=== PATIENT | female | born 1995 | race Caucasian/White ===

== ENCOUNTER 2023-01-25 07:00 | Inpatient (IN) | payer BC, SELFPAY ==
[2023-01-25] VITALS (41 sets, daily range): BP systolic 94–140; BP diastolic 53–73; PULSE 68–112; RESP 16; TEMP 35.7–37.6; O2SAT 93–100; BMI 28.8
[2023-01-25] MEDS: Lactated Ringers 1,000 ML 50 ML IV (07:50)
[2023-01-25 08:11] LABS: Absolute Lymphocyte Count 1.79 X10^3/uL (0.83-4.51); Absolute Neutrophil Count 8.4 X10^3/uL (2.0-7.7); Basophil# 0.02 X10^3/uL; Basophil% 0.2 % (0-1); Eosinophil# 0.02 X10^3/uL; Eosinophils% 0.2 % (0-5); Hematocrit 36.2 % (37-47); Hemoglobin 12.2 g/dL (12.0-15.0); Lymphocyte # 1.79 X10^3/ul (0.83-4.51); Lymphocyte % 16.3 % (19-41); Mean Corp Hgb Conc 33.7 g/dL (32-36); Mean Corpuscular Hgb 30.5 pg (27.0-32.0); Mean Corpuscular Volume 90.5 fL (81-99); Mean Platelet Vol. 10.1 fl (6.2-12.0); Monocyte# 0.71 X10^3/uL; Monocyte% 6.4 % (0-10); NRBC Flagged by Analyzer 0 % (0-5); Neutrophil # 8.44 X10^3/uL (2.7-7.7); Neutrophil % 76.6 % (47-70); Platelet Count 302 K/mm3 (150-450); RBC Distribution Width CV 13.8 % (11.6-14.6); RBC Distribution Width SD 45.5 fl (35.1-43.9)
--- NOTE | 2023-01-25 08:49 | PCM.HP.OB ---
HPI - General General Date of Admission: 01/25/23 Date of Service: 01/25/23 HPI Narrative CAROL GASCA, is a 27 F who presents for induction. Maternal Data Information Final SIENA: 01/17/23 Gestational age: 41&1 PFSH PFS Medical History no medical history Home Medications aspirin 81 mg chewable tablet 1 tab PO DAILY 01/25/23 [History Last Taken 01/25/23 06:00] famotidine 20 mg tablet 20 mg PO DAILY indigestion 01/25/23 [History Last Taken 01/25/23 06:30] vit no.95-ferrous fumarate 28 mg-folic acid 800 mcg tablet () 1 tab PO DAILY 01/25/23 [History Last Taken 01/25/23 06:00] Allergy/AdvReac Type Severity Reaction Status Date / Time No Known Allergies Allergy Verified 01/25/23 07:37 Surgical History (Updated 01/25/23 @ 07:49 by Kellen Monae) Hollis teeth removed Social History Smoking Status: Former smoker History Elective abortions Hx Para 0 Spontaneous abortions Hx # Term Pregnancies Ectopic pregnancies Hx # Pregnancies Multiple births # of living children Vital Signs Vital Signs Vital Signs: 01/25/23 07:45 01/25/23 07:45 01/25/23 08:11 Temperature Temperature Source Pulse Rate 99 Blood Pressure 111/65 BP Systolic 111 BP Diastolic 65 Pulse Ox 98 01/25/23 08:11 01/25/23 08:12 01/25/23 08:12 Temperature Temperature Source Pulse Rate 91 94 Blood Pressure BP Systolic BP Diastolic Pulse Ox 99 01/25/23 08:13 01/25/23 08:11 01/25/23 08:11 Temperature 96.3 F L Temperature Source Temporal Pulse Rate Blood Pressure BP Systolic BP Diastolic Pulse Ox 98 01/25/23 08:11 Temperature 96.2 F L Temperature Source Pulse Rate Blood Pressure BP Systolic BP Diastolic Pulse Ox Weight Weight: 157 lb 10.088 oz Body Mass Index (BMI) 28.8 Labs Labs Labs: Blood Type Pending Antibody Screen Pending Hct 36.2 % (37-47) L Hgb 12.2 g/dL (12.0-15.0) Syphilis Total Ab Pending Assessment & Plan (1) 41 weeks gestation of : COMMENT: @ 41&1 PLAN: Plan Admit to &D Induction - dilapan (x4) removed, will start pitocin GBS negative Pain - plan for epidural EFW - less than 4500g, patient with adequate pelvis
[2023-01-25] MEDS: Oxytocin 15 Units/NS 250ml 15 UNITS/250 ML IV.SOLN 2 UNITS IV (09:01)
[2023-01-25 09:52] LABS: Syphilis Antibodies Non-reactive
--- NOTE | 2023-01-25 13:09 | PN.OBGYN_ITS ---
Subjective Subjective Patient feeling some ctxs Objective Data Objective Data Vital Signs: Vital Signs Temp Pulse BP Pulse Ox 96.3 F L 83 110/70 98 01/25/23 10:55 01/25/23 11:38 01/25/23 11:38 01/25/23 10:55 Weight: 157 lb 10.088 oz Body Mass Index (BMI) 28.8 Intake & Output: Intake and Output for Last 24 Hours 01/23/23 01/24/23 01/25/23 23:59 23:59 23:59 Intake Total 14.00 / 14.00 Balance 14.00 / 14.00 Lab / Micro Data 01/25/23 07:50 Labs: Laboratory Results - last 24 hr 01/25/23 07:50: WBC 11.0, RBC 4.00 L, Hgb 12.2, Hct 36.2 L, MCV 90.5, MCH 30.5, MCHC 33.7, RDW Std Deviation 45.5 H, RDW Coeff of Sydnee 13.8, Plt Count 302, MPV 10.1, Immature Gran % (Auto) 0.300, Neut % (Auto) 76.6 H, Lymph % (Auto) 16.3 L, [place] % (Auto) 6.4, Eos % (Auto) 0.2, Baso % (Auto) 0.2, Absolute Neuts (auto) 8.4 H, Absolute Lymphs (auto) 1.79, Nucleated RBC % 0, Syphilis Total Ab Non- reactive, Blood Type O NEGATIVE, Antibody Screen POSITIVE, Antibody Identification ANTI-D Physical Exam Narrative: cvx - 5/80/-2, AROM clear fluid NST FHR Rate Baby A Baseline: 130 Variability:: Moderate Accelerations:: 15 x 15 Decelerations:: None Uterine Activity:: Irregular Assessment & Plan (1) 41 weeks gestation of : COMMENT: @ 41&1 PLAN: Plan Continue pitocin induction
[2023-01-25] MEDS: LACTATED RINGERS 500 ML 999 ML IV (16:30)
[2023-01-25] MEDS: fentaNYL-bupivacaine (epidural) 100 ML BAG EPIDURAL ×2 (17:22→21:37)
[2023-01-25] MEDS: Lactated Ringers 1,000 ML 200 ML IV ×2 (17:51→23:36)
[2023-01-26] VITALS (29 sets, daily range): BP systolic 73–134; BP diastolic 46–81; PULSE 66–162; RESP 15–165; TEMP 36.1–37.8; O2SAT 95–100
[2023-01-26] MEDS: LACTATED RINGERS 500 ML 999 ML IV ×2 (01:42→08:38)
[2023-01-26] MEDS: fentaNYL-bupivacaine (epidural) 100 ML BAG EPIDURAL ×2 (02:22→07:19)
[2023-01-26] MEDS: Lactated Ringers 1,000 ML 200 ML IV ×2 (05:12→11:46)
--- NOTE | 2023-01-26 08:15 | PCM.PN.OB ---
Subjective Subjective Patient seen at bedside. Comfortable with epidural. Objective Data Objective Data Vital Signs: Vital Signs Temp Pulse Resp BP Pulse Ox 99.0 F 81 16 114/77 100 01/26/23 07:31 01/26/23 07:31 01/25/23 13:47 01/26/23 07:31 01/26/23 07:29 Weight: 157 lb 10.088 oz Body Mass Index (BMI) 28.8 Intake & Output: Intake and Output for Last 24 Hours 01/24/23 01/25/23 01/26/23 23:59 23:59 23:59 Intake Total 2353.41 / 2353.41 1652.0 / 1652.0 Output Total 600 / 600 1150 / 1150 Balance 1753.41 / 1753.41 502.0 / 502.0 Lab / Micro Data 01/25/23 07:50 Labs: Laboratory Results - last 24 hr 01/25/23 07:50: Syphilis Total Ab Non-reactive, Blood Type O NEGATIVE, Antibody Screen POSITIVE, Antibody Identification ANTI-D ROS Eyes Eyes: Denies blurry vision, change in vision or spots in vision ENT HEENT: Denies dizziness or headache(s) Cardiovascular Cardiovascular: Denies abdominal pain, chest pain or dyspnea Respiratory/Chest Respiratory/Chest: Denies cough, dyspnea, shortness of breath at rest or shortness of breath with exertion Gastrointestinal Gastrointestinal: Denies abdominal pain, diarrhea or vomiting Genitourinary Genitourinary: Denies change in urinary stream, difficulty urinating or dysuria Musculoskeletal Musculoskeletal: Reports none Integumentary Integumentary: Denies rash Neurologic Neurologic: Denies dizziness, headache(s), memory loss or weakness Psychiatric Psychiatric: Reports none Physical Exam Const alert and no apparent distress General Appearance: cooperative Orientation / Consciousness: awake Exam Limitations: no limitations HEENT normocephalic Eyes General Eye: normal appearance of both eyes Neck full ROM Chest inspection of chest normal Resp normal respiratory effort and normal air movement Effort and Inspection: symmetric chest movement Auscultation: clear to auscultation bilaterally Cardio regular rate GI soft to palpation, non-tender and non-distended Inspection: and other Back/Spine normal ROM Extremity full ROM, normal capillary refill and no calf tenderness Skin no rashes or lesions noted Neuro oriented x3 and CN's II-XII intact bilaterally Psych mental status grossly normal Assessment & Plan (1) 41 weeks gestation of : COMMENT: @ 41&1 (2) Encounter for induction of labor: PLAN: Plan CE- 9cm/0 IUPC replaced Pitocin IV at 20 mu/min Epidural rate to be decreased in order for patient to feel during pushing Anticipate Dr. Mercado updated and is collaborating physician
[2023-01-26] MEDS: 0.9% Saline Lock 10 ML Syringe IV ×2 (08:45→20:05)
--- NOTE | 2023-01-26 12:27 | PCM.PN.BLA ---
Progress Note I was called to evaluate patient for possible vacuum extraction due to maternal exhaustion. Upon my arrival tachycardia appreciated with variable and late decelerations. head with pushing at +[address] Cisneros catheter draining. Patient was counseled on Kiwi vacuum application risks benefits and alternatives. Patient agreeable to attempt. Vacuum was placed on the flexion point and attempt with 2 contractions without movement of the head. Vacuum was then removed and maternal pushing efforts again no movement of the head. At this time patient was counseled with 1 more attempt of the vacuum and if no further movement my recommendation would be for a primary section. At this time patient opted for no further trial of the vacuum and wants to proceed with a primary section. Patient was counseled on the risks of a primary section including but not limited to injury to fetus if a push up from below was indicated, infection, bleeding, uterine and cervical lacerations. All questions were answered. TXA and preoperative antibiotics including azithromycin and Ancef were ordered. Or team notified. We will proceed as an BAUDILIO .
[2023-01-26] MEDS: Cefazolin 2 GM in 0.9% Normal Saline 100 ML IV (12:30)
[2023-01-26] MEDS: Methylergonovine 0.2 MG/ML Ampul IM (13:13)
[2023-01-26] MEDS: Oxytocin 15 Units/NS 250ml 15 UNITS/250 ML IV.SOLN 83 UNITS IV (13:13)
--- NOTE | 2023-01-26 13:40 | EX.PCM.OBRPT ---
Details Operative Information Date of Procedure: 01/26/23 Pre-Operative Diagnosis: 41 weeks, prolonged labor, Arrest of descent, failed operative delivery, maternal exhaustion, tachycardia, Meconium stained amniotic fluid Post-Operative Diagnosis: same, live female Indications Narrative: Patient was pushing for 3+ hours without descent of the head. I was called by nurse umbrella supervisor Ying veliz for attempted vacuum extraction. With pushing the head was at +2 station Kiwi vacuum was attempted without movement of the head. Patient was counseled on a primary section at that time. I discussed with the patient after the section that I do not recommend a trial of labor after section. Any future pregnancies I would recommend planned repeat section at 39 weeks. Classification: BAUDILIO Procedure Type: low transverse manager assessment #1: Perico Guerra Type of Anesthesia: Epidural Antibiotic Given: Ancef 2 grams IV x1 and Zithromax 500 mg/5 mL X1 Drain: Cisneros to straight drain Estimated Blood Loss: 600 Fluids Replaced: 1200 Procedure Start Time: 12:48 Procedure Stop Time: 13:41 Time of Delivery: 12:52 Findings Description of Procedure: After informed consent was obtained the patient was taken the operating room. She was then placed in the supine position. She was prepped and draped in the normal sterile fashion. epdiural Anesthesia was found to be adequate. head was disengaged and pillow was placed after vaginal vault prep performed. At this time a Pfannenstiel skin incision was made with a knife was carried down to the underlying layer of the fascia. The fascial incision was then extended laterally using gentle opposing traction. attention was then turned to the superior aspect of the fascial edge was grasped with 2 straight [place] clamps tented up and the rectus muscle dissected off sharply using curved Gonzalez scissor. Rectus muscles were then in the midline bluntly and peritoneum was entered bluntly. Gentle opposing traction was placed. At this time the vesicouterine peritoneum was identified. Scalpel was used to make a uterine incision in a low transverse fashion. The uterus was then entered bluntly gentle opposing traction was placed to extend this incision. thick meconium fluid. 's head was brought to the uterine incision was delivered atraumatically. Cord was clamped and cut was handed to the waiting nursery team. The Placenta was removed from the uterus. The uterus was then removed from the abdominal cavity. Small extension down both sides were noted- repairs were incorporated into the closure of uterus. The uterus was cleared of all clots and debris using a lap. At this time the uterine incision was reapproximated using #1 Vicryl in a running locked fashion. Multiple sinuses bleeding in lower uterine segement- required sutures in figure of eight fashion for hemostasis. Hemostasis was appreciated. Posterior cul-de-sac was then cleared of all clots and debris. Uterus was placed back in the abdominal cavity. Gutters were cleared of all clots and debris. Uterine incision was reevaluated and noted to be of good hemostasis. Reynold placed. At this time the peritoneum and muscle were grasped with Kellys reapproximated using #2 Vicryl suture in a running fashion. Reynold placed over rectus. Fascia was then reapproximated using #1 Vicryl in a running fashion. Subcu layer was irrigated and then reapproximated with #2 0 plain gut suture in an interrupted fashion. Subcu layer was closed using 4-0 Monocryl in a Chris needle in a subcu fashion. Dry sterile dressing was applied. Instrument lap needle count correct ?2. Anticipated normal postoperative course. Presentation: Positive for Vertex Amniotic Membrane Rupture Type: Artificial Amniotic Fluid Description: Thick meconium Placental Delivery Description: Expressed Placenta Disposition: [facility] Cord Vessel Description: 3 Vessels Cord Entanglement: None A Gender: Female (1 minute): 8 (5 minute): 9 Delayed Cord Clamping: No Complications Risks of Surgery Discussed w/Patient: Bleeding, Anesthesia Risks, Infection, Need for Future C-Sections and Injury to surrounding structure(s) including bowel and bladder Complications: 2 bottle of reynold used for hemostasis. pillow used
[2023-01-26] MEDS: Ketorolac 30 MG/ML Syringe IV ×2 (14:15→20:04)
[2023-01-26] MEDS: Acetaminophen 500 MG Tablet 1000 MG PO ×2 (18:29→23:21)
[2023-01-27] VITALS: PULSE 68; RESP 14; O2SAT 97
[2023-01-27 01:13] VITALS: PULSE 72; RESP 15; O2SAT 97
[2023-01-27] MEDS: Ketorolac 30 MG/ML Syringe IV ×2 (02:28→09:11)
[2023-01-27] MEDS: 0.9% Saline Lock 10 ML Syringe IV ×2 (02:28→09:11)
[2023-01-27 03:30] VITALS: BP 103/67; PULSE 80; RESP 15; TEMP 36.4; O2SAT 97
[2023-01-27 05:20] LABS: Hematocrit 31.9 % (37-47); Hemoglobin 10.5 g/dL (12.0-15.0); Mean Corp Hgb Conc 32.9 g/dL (32-36); Mean Corpuscular Hgb 30.6 pg (27.0-32.0); Mean Platelet Vol. 9.7 fl (6.2-12.0); Platelet Count 226 K/mm3 (150-450); RBC Distribution Width CV 14.3 % (11.6-14.6); RBC Distribution Width SD 47.6 fl (35.1-43.9); Red Blood Count 3.43 M/mm3 (4.2-5.4); White Blood Count 14.1 K/mm3 (4.4-11.0)
[2023-01-27] MEDS: Acetaminophen 500 MG Tablet 1000 MG PO ×3 (06:37→18:15)
--- NOTE | 2023-01-27 07:34 | PCM.PN.OB ---
Subjective Subjective Patient seen at bedside. Feeling good. Pain is controlled. Ambulating to bathroom and voiding without difficulty. Objective Data Objective Data Vital Signs: Vital Signs Temp Pulse Resp BP Pulse Ox O2 Del Method 97.5 F L 80 15 103/67 97 Room Air 01/27/23 03:30 01/27/23 03:30 01/27/23 03:30 01/27/23 03:30 01/27/23 03:30 01/27/23 03:30 Oxygen Delivery Method Room Air Weight: 157 lb 10.088 oz Body Mass Index (BMI) 28.8 Intake & Output: Intake and Output for Last 24 Hours 01/25/23 01/26/23 01/27/23 23:59 23:59 23:59 Intake Total 2353.41 / 2353.41 6061.34 / 6061.34 Output Total 600 / 600 2950 / 2950 400 / 400 Balance 1753.41 / 1753.41 3111.34 / 3111.34 -400 / -400 Lab / Micro Data 01/27/23 05:11 Labs: Laboratory Results - last 24 hr 01/26/23 17:50: Screen NEGATIVE, Baby's Blood Type O POSITIVE, Baby's DANIEL NEGATIVE 01/27/23 05:11: WBC 14.1 H, RBC 3.43 L, Hgb 10.5 L, Hct 31.9 L, MCV 93.0, MCH 30.6, MCHC 32.9, RDW Std Deviation 47.6 H, RDW Coeff of Sydnee 14.3, Plt Count 226, MPV 9.7 ROS Eyes Eyes: Denies blurry vision, change in vision or spots in vision ENT HEENT: Denies dizziness or headache(s) Cardiovascular Cardiovascular: Denies abdominal pain, chest pain or dyspnea Respiratory/Chest Respiratory/Chest: Denies cough, dyspnea, shortness of breath at rest or shortness of breath with exertion Gastrointestinal Gastrointestinal: Denies abdominal pain, diarrhea or vomiting Genitourinary Genitourinary: Denies change in urinary stream, difficulty urinating or dysuria Musculoskeletal Musculoskeletal: Reports none Integumentary Integumentary: Denies rash Neurologic Neurologic: Denies dizziness, headache(s), memory loss or weakness Physical Exam Narrative Dressing is dry and intact Const alert and no apparent distress General Appearance: cooperative and comfortable Exam Limitations: no limitations HEENT normocephalic Eyes General Eye: normal appearance of both eyes Neck full ROM General: normal visual inspection Chest Chest: symmetrical chest wall rise Resp normal respiratory effort and normal air movement Effort and Inspection: symmetric chest movement Auscultation: clear to auscultation bilaterally Cardio regular rate and regular rhythm GI normal to inspection, nondistended, normoactive bowel sounds Back/Spine normal ROM Extremity full ROM and no calf tenderness General Extremity: normal exam except as noted Skin no rashes or lesions noted Neuro CN's II-XII intact bilaterally Psych mental status grossly normal Assessment & Plan (1) Status post primary low transverse section: (2) Care and examination of lactating mother: PLAN: Plan POD 1 Primary C/S Routine care Pain control support Anticipate discharge home tomorrow
[2023-01-27 09:04] VITALS: BP 98/59; PULSE 84; RESP 16; TEMP 36.7; O2SAT 98
--- NOTE | 2023-01-27 10:13 | CASEMGMT ---
Social Work Assessment Labor and Delivery Unit Patient Address:[address] [place] [address] [place] [address] Phone number: [phone] Date of Referral: 01/26/23 Time of Referral:? 1800 Referred By: Dr. Marisela Mercado Date of Intervention: ??01/27/23 Time of Intervention:? 929 Reason for Referral:? anxiety Sw completed chart review and acknowledges social work consult received due to MOB with anxiety. Sw presented to bedside, introduced self to parents and explained sw role during hospitalization. History obtained from: medical records and mother of baby (MIRANDA- Tamiko) and father of baby (FOB- Javad Wright)??? Household composition: Currently residing in the home are parents and baby, Cy (no one else lives with family at this time) Patient's parent/guardian status:?MOB is a 27- year- old single female who has been involved with FOB for the past2.5/3 years. FOB is 27-year-old single male. During private conversation with MOB, MOB denies any form of domestic violence or intimate partner violence. is the first child to both parents. [place] baby girl is to be named Cy Ny, born 01/26/[birth year]. Medical History: MIRANDA is 1, para 0, now 1 after delivering baby girl via . MIRANDA received routine care with [facility]. Cy weighed 7lb 8oz at , and her apgars were 9 and 9. No medical issues or concerns reported at this time. MOB states that she is and it is going well. Educational Status:?BOth parents graduated from high school. Parents deny any concerns learning, reading or writing, no need for IEP. Financial Status: Both parents are gainfully employed outside of the home. Both parents work at [employer]. FOB states that he is able to take off 2 weeks now that baby has been born. MOB states that she will be off of work for four months. Supplies:?Parents state that they have obtained all necessary baby items for baby including safe sleep space, car seat, clothes, diapers and wipes. Childcare/Caregiver(s):?MOB states that she and FOB will be the primary caregivers to patient. Parents report they will be working different shifts at work to help accommodate child care coordinator needs. Transportation:?? Parents deny transportation issues, both have reliable vehicles. No transportation barriers at this time. Programs/Agencies Involved: ???No agency/ program involvement at this time. Sw provided parents with brochure on Help Me Grow and explained benefits of getting connected. Parents appreciative of information received. Children Services/Legal Issues:??? No prior involvement, no issues or concerns warranting referral at this time. Behavioral Health Issues: ??Mental Health History:??FOB states that as a child he was diagnosed with ADHD and anxiety. FOB states that he was formerly prescribed medication but is no longer requiring it. FOB reports that he does not have any issues with anxiety at this time. MOB reports that she has never been diagnosed with anxiety. MOB belives that the hospital may have indicated that she has anxiety due to how anxious she was during labor and delivery. MOB states that she has never been officially diagnosed with anything and has never been prescribed medications to assist with mental health issues. Sw met with MOB alone and MOB completed the [place] Depression screen. MOB score was a 2. Sw provided education on signs and symptoms of baby blues and post depression. Substance Use History:?MOB denied substance use history prior to or during . ? Family History:?MOB states that she is not sure if she has family members with a mental health history. MOB states that her biological dad does have a substance use problem, however MOB does not know with what substance. ?Drug Screens: ?No drug screens noted in chart review. Family/Social Stressors:? No concerns or stressors reported at this time by parents. Support Systems: MOB states that maternal grandma and paternal grandma are supportive. Depression/Shaken Baby/Safe Sleeping:?Sw provided education on signs and symptoms of baby blues and post depression. Sw left literature for parents to review. Sw reviewed ABCs of safe sleep and shaken baby prevention. Sw explained the importance of seeking mental health support should MOB experience symptoms of baby blues or depression. MOB and FOB expressed understanding of each issue. ASSESSMENT:?Parents were engaged and talkative throughout assessment. Parents receptive to sw involvement and support. MOB denies history of mental health, and states that symptoms of anxiety only presented themselves during labor. FOB and MOB were both attentive to baby during sw assessment. PLAN:? Sw continue to provide support as warranted throughout admission. ?No other services requested or indicated. Mely Winchester, GLOBAL MARKETING MANAGER, [employer]
[2023-01-27 13:17] VITALS: BP 103/56; PULSE 88; RESP 16; TEMP 36.3; O2SAT 97
[2023-01-27] MEDS: Senna/Docusate Sodium 1 Tablet PO (13:42)
[2023-01-27] MEDS: Ibuprofen 600 MG Tablet PO ×2 (16:01→21:29)
[2023-01-27 21:00] VITALS: BP 91/74; PULSE 93; RESP 16; TEMP 36.5; O2SAT 97
[2023-01-28 01:00] VITALS: BP 111/72; PULSE 70; RESP 16; TEMP 36.2; O2SAT 98
[2023-01-28] MEDS: Acetaminophen 500 MG Tablet 1000 MG PO ×2 (01:43→05:55)
[2023-01-28] MEDS: Ibuprofen 600 MG Tablet PO ×2 (02:49→09:05)
--- NOTE | 2023-01-28 08:43 | PCM.PN.OB ---
Subjective Subjective Pain controlled Objective Data Objective Data Vital Signs: Vital Signs Temp Pulse Resp BP Pulse Ox O2 Del Method 97.1 F L 70 16 111/72 98 Room Air 01/28/23 01:00 01/28/23 01:00 01/28/23 01:00 01/28/23 01:00 01/28/23 01:00 01/28/23 01:00 Oxygen Delivery Method Room Air Weight: 157 lb 10.088 oz Body Mass Index (BMI) 28.8 Intake & Output: Intake and Output for Last 24 Hours 01/26/23 01/27/23 01/28/23 23:59 23:59 23:59 Intake Total 6061.34 / 6061.34 Output Total 2950 / 2950 400 / 400 Balance 3111.34 / 3111.34 -400 / -400 Lab / Micro Data 01/27/23 05:11 Physical Exam Const alert, oriented x3 and no apparent distress HEENT normocephalic GI soft to palpation, non-tender and non-distended GI Narrative: fundus firm, mid & below umbilicus Incision - bandage c/d/i Extremity normal to inspection and no calf tenderness Assessment & Plan (1) Status post primary low transverse section: COMMENT: POD#2 PLAN: Plan D/c home
--- NOTE | 2023-01-28 08:44 | DCINST_ITS ---
Discharge Instructions Diet Discharge Diet: No restrictions Activity Discharge Activity: May Shower May resume sexual activity in: 6 weeks Weight Bearing Status: Weight bearing as tolerated Dressing / Incision Call your doctor if your incision/area has: Continuous Slow Oozing, Sudden Increased Bleeding, Increased Pain/ Swelling, Increased Redness, Foul Smelling Discharge and Swelling at the incision site Call your doctor if you observe: Fever of 101 or Higher, Coldness, Increased Pain, Change in Color, Inability to urinate, Inability to have a bowel movement, Using more than 1 pad per hour, Shortness of breath, Dizziness, Fainting spells, Chest pain, Increased palpitations (irregular heartbeat), Calf discomfort and Uncontrolled pain Suture Line Care: Avoid Pulling/Pushing and Avoid Pinching/Bending Remove Dressing in: 1 week Cleanse incision/area with: Soap & Water Follow Up Care Please Follow Up With: Marisela Campos MD When: Follow up in 2 and 6 weeks for visits. Test Results: Test results from this visit will be discussed in further detail at your follow- up appointment, if applicable. Discharge Plan Admission Admit Date/Time: 01/25/23 07:00 Primary Reason for Your Visit: section Attending Provider: Marisela Campos Primary Care Provider: Nikki Fernandez Discharge Orders/Prescriptions Prescriptions: New acetaminophen 500 mg Tablet 1,000 mg PO Q6 Qty: 0 0RF acetaminophen 500 mg Tablet 500 - 1,000 mg PO Q6H PRN PRN (Reason: Pain Score 1-3) Qty: 0 0RF ibuprofen 600 mg Tablet 600 mg PO Q6H Qty: 0 0RF Continued PNV cmb#95-ferrous fumarate-FA [] 28 mg iron- 800 mcg tablet 1 tab PO DAILY Discontinued famotidine 20 mg tablet 20 mg PO DAILY Patient Comments: TAKE 1 TABLET BY MOUTH TWICE DAILY aspirin 81 mg tablet,chewable 2 tab PO DAILY Referrals / Follow Up: Nikki Fernandez PA [Primary Care Provider] - Disposition Disposition (needs filled in before D/C Order can be placed): Home, Self Care
[2023-01-28] MEDS: Senna/Docusate Sodium 1 Tablet PO (09:05)
[2023-01-28 09:41] VITALS: BP 111/77; PULSE 79; RESP 16; TEMP 36.1; O2SAT 98
== END 2023-01-28 12:40 | disposition home or self-care (01) | DRG 788 ==
PROVIDERS: Obstetrics & Gynecology; Admitting Provider Obstetrics & Gynecology; PCP Physician Assistant; Referring Provider Obstetrics & Gynecology; Visit Provider Obstetrics & Gynecology
DX: O76 Abnormality in fetal heart rate and rhythm complicating labor and delivery (principal); O32.4XX0 Maternal care for high head at term, not applicable or unspecified; O63.1 Prolonged second stage (of labor); O75.81 Maternal exhaustion complicating labor and delivery; O77.0 Labor and delivery complicated by meconium in amniotic fluid; O66.5 Attempted application of vacuum extractor and forceps; Z37.0 Single live birth; Z3A.41 41 weeks gestation of pregnancy; Z79.82 Long term (current) use of aspirin; Z87.891 Personal history of nicotine dependence
CPT/HCPCS: 59025; 59050; 85025; 85027; 85461; 86780; 86850; 86870; 86900; 86901; 99221; J7120; A4216; G0378; J2405; J2790